=== PATIENT | female | born 1990 | race Caucasian/White ===

== ENCOUNTER 2018-05-06 21:05 | Inpatient (IN) | payer MEDICAID ==
[2018-05-05 02:20] VITALS: BP 152/91
[~2018-05-06] VITALS: Ht 149.9 cm; Wt 63.5 kg
[2018-05-06] MEDS ORDERED: DEXT 5%/LR + PITOCIN 20UNITS/L 1,000 ML IV SCH ×2 (21:26→23:15)
[2018-05-06] MEDS ORDERED: CARBOPROST TROMETHAMINE 250 MCG/ML AMPUL IM PRN (21:30)
[2018-05-06] MEDS ORDERED: NALOXONE HCL 0.4 MG/ML 1ML VIAL IM PRN (21:30)
[2018-05-06] MEDS ORDERED: METHYLERGONOVINE MALEATE 0.2 MG/ML IM PRN (21:30)
[2018-05-06] MEDS ORDERED: LACTATED RINGERS 1,000 ML IV SCH (21:45)
[2018-05-06 22:08] LABS: BASOPHILS % 0.3 % (0.0-2.0); EOSINOPHILS % 0.2 % (0.0-5.0); HEMATOCRIT. 35.4 % (36.0-48.0); HEMOGLOBIN. 11.5 g/dL (12.0-16.0); LYMPHOCYTES % 11.1 % (20.0-50.0); MEAN CORPUSCULAR HEMOGLOBIN 27.6 pg (28.0-32.0); MEAN CORPUSCULAR VOLUME 84.7 fL (81.0-99.0); MEAN PLATELET VOLUME 11.3 fl (7.4-10.4); MONOCYTES % 4.9 % (2.0-8.0); NEUTROPHILS % 83.5 % (40.0-76.0); PLATELET 239 x1000/uL (130-400); RED BLOOD CELL COUNT 4.18 mill/uL (4.2-5.4); RED CELL DISTRIBUTION WIDTH 16.6 % (11.6-14.6)
[2018-05-06 22:14] LABS: CHLORIDE 110 mEq/L (98-107)
[2018-05-06] MEDS ORDERED: TERBUTALINE SULFATE 1MG/ML VIAL SUBCUT PRN (22:15)
[2018-05-06 22:21] LABS: INR 0.8; PARTIAL THROMBOPLASTIN TIME 25.8 sec (23.4-31.0)
[2018-05-06] MEDS ORDERED: DIPHENHYDRAMINE 50MG/ML VIAL IV PRN (22:30)
[2018-05-06] MEDS ORDERED: CITRIC ACID/SODIUM CITRATE SOLN 30ML UDC PO NR (22:30)
[2018-05-06] MEDS ORDERED: KETOROLAC 30MG/ML VIAL IV PRN (22:30)
[2018-05-06] MEDS ORDERED: MEPERIDINE HCL/PF 25MG/ML CPJ IV PRN (22:30)
[2018-05-06] MEDS ORDERED: ONDANSETRON HCL 4MG/2ML INJ IV PRN (22:30)
[2018-05-06] MEDS ORDERED: METOCLOPRAMIDE HCL 10MG/2ML VIAL IV PRN (22:30)
[2018-05-06 22:42] LABS: PROTHROMBIN TIME 8.5 sec (9.1-11.1)
[2018-05-06] MEDS ORDERED: MAGNESIUM 20 G PREMIX (L & D) 500 ML IV SCH ×2 (22:45→23:15)
[2018-05-06 22:46] LABS: HEPATITIS B SURFACE ANTIGEN NEGATIVE
[2018-05-06] MEDS ORDERED: BISACODYL 10MG SUPP PR PRN (23:15)
[2018-05-06] MEDS ORDERED: DIPHENHYDRAMINE 25MG CAPSULE PO PRN (23:15)
[2018-05-06] MEDS ORDERED: RHO(D) IMMUNE GLOBULIN 300 MCG/SYR IM PRN (23:15)
[2018-05-06] MEDS ORDERED: HYDROCODONE/ACETAMINOPHEN 5/325MG TABLET PO PRN (23:15)
[2018-05-06] MEDS ORDERED: HYDROMORPHONE HCL/PF 2MG/ML CPJ IM PRN (23:15)
[2018-05-06] MEDS ORDERED: IBUPROFEN 400MG TABLET PO PRN (23:15)
[2018-05-06 23:34] LABS: CLARITY URINE CLOUDY (CLEAR); COLOR URINE YELLOW (YELLOW); KETONES URINE NEGATIVE (NEGATIVE); LEUKOCYTE ESTERASE URINE NEGATIVE (NEGATIVE); NITRITE URINE NEGATIVE (NEGATIVE); OCCULT BLOOD URINE 1+ (NEGATIVE); PH URINE 5.5 (4.5-8.0); PROTEIN URINE 4+ (NEGATIVE); SPECIFIC GRAVITY URINE 1.017 (1.005-1.030); UROBILINOGEN URINE 0.2 E.U./dL (0.2-1.0)
[2018-05-06 23:50] LABS: *BARBITURATES SCREEN URINE NEGATIVE (NEGATIVE); *COCAINE SCREEN URINE NEGATIVE (NEGATIVE)
[2018-05-06 23:51] LABS: *BENZODIAZEPINES SCREEN URINE NEGATIVE (NEGATIVE); CANNABINOID URINE SCREEN NEGATIVE (NEGATIVE); METHADONE URINE SCREEN NEGATIVE (NEGATIVE); OPIATES URINE SCREEN NEGATIVE (NEGATIVE); PHENCYCLIDINE URINE SCREEN NEGATIVE (NEGATIVE)
[2018-05-06 23:57] LABS: *AMPHETAMINES SCREEN URINE PRESUMTIVE POSITIVE (NEGATIVE)
[2018-05-07] VITALS (12 sets, daily range): BP systolic 115–159; BP diastolic 61–104
[2018-05-07 05:55] LABS: HEMATOCRIT. 30.8 % (36.0-48.0); MEAN CORPUSCULAR VOLUME 86.6 fL (81.0-99.0); MEAN PLATELET VOLUME 10.9 fl (7.4-10.4); PLATELET 269 x1000/uL (130-400); RED BLOOD CELL COUNT 3.56 mill/uL (4.2-5.4); RED CELL DISTRIBUTION WIDTH 16.7 % (11.6-14.6)
[2018-05-07] MEDS ORDERED: LABETALOL HCL 5MG/ML VIAL 20ML IV ONE (07:56)
[2018-05-07] MEDS ORDERED: LABETALOL 5MG/ML SYR 20 MG/4 ML SYRINGE IV NR (08:00)
[2018-05-07] MEDS: LABETALOL HCL 200MG TABLET PO SCH ×2 (08:43→21:00)
[2018-05-07] MEDS: IBUPROFEN 800MG TABLET PO PRN (16:24)
[2018-05-07 17:18] LABS: PLATELET ESTIMATE NORMAL
[2018-05-08] VITALS: BP 128/81
[2018-05-08 05:45] VITALS: BP 134/83
[2018-05-08 07:42] VITALS: BP 138/84
[2018-05-08] MEDS: IBUPROFEN 800MG TABLET PO PRN ×3 (08:21→21:33)
[2018-05-08] MEDS: LABETALOL HCL 200MG TABLET PO SCH ×2 (08:24→21:35)
[2018-05-08 16:16] VITALS: BP 134/80
[2018-05-08 20:00] VITALS: BP 144/70
[2018-05-08 23:45] VITALS: BP 131/80
[2018-05-09] MEDS ORDERED: TETANUS, DIPHTHERIA, PERTUSSIS VAC/PF 0.5ML (>7YR OLD) IM ONE (01:00)
[2018-05-09 03:23] VITALS: BP 132/85
[2018-05-09] MEDS ORDERED: INFLUENZA VIRUS VACCINE(AFLURIA) 0.5ML SYR IM ONE (06:00)
[2018-05-09] MEDS ORDERED: LABETALOL HCL 200MG TABLET PO SCH (08:00)
[2018-05-09 08:45] VITALS: BP 138/71
[2018-05-09 09:14] VITALS: BP 138/71
[2018-05-09] MEDS: IBUPROFEN 800MG TABLET PO PRN (09:14)
[2018-05-09 09:55] LABS: HEMATOCRIT. 24.9 % (36.0-48.0); HEMOGLOBIN. 8.1 g/dL (12.0-16.0); MEAN CORPUSCULAR HEMOGLOBIN 28.1 pg (28.0-32.0); MEAN CORPUSCULAR VOLUME 86.6 fL (81.0-99.0); PLATELET 222 x1000/uL (130-400); RED BLOOD CELL COUNT 2.88 mill/uL (4.2-5.4); RED CELL DISTRIBUTION WIDTH 17.4 % (11.6-14.6)
[2018-05-09 12:47] LABS: PLATELET ESTIMATE NORMAL
[2018-05-11 19:06] LABS: AMPHETAMINE CONF URINE Positive (.)
== END 2018-05-09 16:00 | disposition home or self-care (01) | DRG 540 ==
LOC: OBSVTOIN 21:05 → 8 EST LDRP 21:05 → 8EST 05-07 02:15
PROVIDERS: ADMIT Obstetrics & Gynecology; ATTEND Obstetrics & Gynecology
PROC: 10D00Z1 Extraction of Products of Conception, Low, Open Approach (ICD-10-PCS; principal; 2018-05-06)
DX: O13.4 Gestational [pregnancy-induced] hypertension without significant proteinuria, complicating childbirth (principal); O45.93 Premature separation of placenta, unspecified, third trimester; O60.14X0 Preterm labor third trimester with preterm delivery third trimester, not applicable or unspecified; R18.8 Other ascites; O34.211 Maternal care for low transverse scar from previous cesarean delivery; O77.0 Labor and delivery complicated by meconium in amniotic fluid; O75.89 Other specified complications of labor and delivery; O14.14 Severe pre-eclampsia complicating childbirth; Z3A.35 35 weeks gestation of pregnancy; Z37.0 Single live birth
CPT/HCPCS: 36415; 80305; 80307; 83735; 84550; 85007; 85027; 86592; 86703; 86762; 86850; 86900; 87340; 88307; 90686; 90715; 99281; G0378; J2590; J3105; J3475; J3490; J7120; Q0163; A4315